=== PATIENT | female | born 1990 | race Caucasian/White ===

== ENCOUNTER → 2016-11-15 | Outpatient (CLI) | payer BC ==
[2016-11-15 17:03] LABS: URINE APPEARANCE CLEAR (CLEAR); URINE BILIRUBIN NEG (NEG); URINE COLOR YELLOW; URINE NITRITE NEG (NEG); URINE SPECIFIC GRAVITY 1.005 (1.000-1.030); UROBILINOGEN NEG (NEG)
[2016-11-15 17:15] LABS: MANUAL MICROSCOPIC REQUIRED? NO; REVIEW REQ? NO
== END | disposition home or self-care (01) ==
LOC: C.LABSPEC 16:17
PROVIDERS: ATTEND Obstetrics & Gynecology
DX: Z34.00 Encounter for supervision of normal first pregnancy, unspecified trimester (principal)

== ENCOUNTER → 2016-11-22 | Outpatient (CLI) | payer BC ==
[2016-11-25 01:46] LABS: CHLAMYDIA TRACH RNA*** NOT DETECTED (NOT DETECTED); GC (NEIS GONORRHOEAE)RNA** NOT DETECTED (NOT DETECTED)
== END | disposition home or self-care (01) ==
LOC: C.LABSPEC 13:52
PROVIDERS: ATTEND Obstetrics & Gynecology
DX: Z34.00 Encounter for supervision of normal first pregnancy, unspecified trimester (principal)

== ENCOUNTER → 2016-11-22 | Outpatient (CLI) | payer BC ==
[2016-11-22 14:46] LABS: BASO % 0.3 %; BASO ABS # 0.02 K/uL (0-0.2); COMPLETE YES; EOS % 2.4 %; HEMATOCRIT 36.2 % (37-47); IG% 0.1 %; LYMPH % 27.5 %; LYMPH ABS # 1.98 K/uL (1.2-3.4); MEAN CELL VOLUME 85.2 fL (80-100); MEAN CORPUSCULAR HEMOGLOBIN 31.5 pg (25-34); MEAN PLATELET VOLUME 10.8 fL (7.4-10.4); MONO % 10.3 %; NEUT % 59.4 %; PLATELET COUNT 224 K/uL (130-400); RED BLOOD COUNT 4.25 M/uL (4.2-5.4); WHITE BLOOD COUNT 7.19 K/uL (4.8-10.8)
== END | disposition home or self-care (01) ==
LOC: C.LAB1850 12:36
PROVIDERS: ATTEND Obstetrics & Gynecology
DX: Z34.00 Encounter for supervision of normal first pregnancy, unspecified trimester (principal)

== ENCOUNTER → 2017-01-31 | Outpatient (CLI) | payer BC ==
[2017-01-31 13:51] LABS: GTGD 50 Grams
== END | disposition home or self-care (01) ==
LOC: C.LAB1850 11:01
PROVIDERS: ATTEND Obstetrics & Gynecology
DX: Z34.01 Encounter for supervision of normal first pregnancy, first trimester (principal)

== ENCOUNTER → 2017-04-27 | Outpatient (CLI) | payer BC ==
[2017-04-27 10:14] LABS: HEMATOCRIT 35.2 % (37-47)
[2017-04-27 10:43] LABS: GTGD 50 Grams
[2017-04-27 12:08] LABS: URINE APPEARANCE TURBID (CLEAR); URINE BILIRUBIN NEG (NEG); URINE COLOR YELLOW; URINE EPITHELIAL CELL AUTO >30 /lpf (0-5); URINE NITRITE NEG (NEG); URINE PH 7.5 (4.5-7.5); URINE SPECIFIC GRAVITY 1.017 (1.000-1.030); UROBILINOGEN NEG (NEG)
[2017-04-27 12:14] LABS: MANUAL MICROSCOPIC REQUIRED? NO; REVIEW REQ? NO
== END | disposition home or self-care (01) ==
LOC: C.LAB1850 09:06
PROVIDERS: ATTEND Obstetrics & Gynecology
DX: Z34.02 Encounter for supervision of normal first pregnancy, second trimester (principal)

== ENCOUNTER → 2017-06-22 | Outpatient (CLI) | payer BC | END | disposition home or self-care (01) | LOC: C.LABSPEC 17:25 | PROVIDERS: ATTEND Obstetrics & Gynecology | DX: Z34.03 Encounter for supervision of normal first pregnancy, third trimester (principal) ==

== ENCOUNTER 2017-07-06 17:01 | Inpatient (IN) | payer BC ==
[~2017-07-06] VITALS: Ht 162.6 cm; Wt 70.8 kg
[2017-07-06 17:46] LABS: HEMATOCRIT 36.3 % (37-47); MEAN CORPUSCULAR HEMOGLOBIN 30.1 pg (25-34); MEAN CORPUSCULAR HGB CONC 35.8 g/dl (32-36); PLATELET COUNT 278 K/uL (130-400); RED BLOOD COUNT 4.32 M/uL (4.2-5.4); WHITE BLOOD COUNT 17.78 K/uL (4.8-10.8)
[2017-07-06 19:38] VITALS: Ht 162.6 cm; Wt 70.8 kg
[2017-07-07] MEDS ORDERED: BUPIVACAINE 0.25% 30 ML VIAL ONE (01:52)
[2017-07-07] MEDS ORDERED: EpHEDrine SULFATE INJ 50 MG/ML AMP ONE (01:52)
[2017-07-07] MEDS ORDERED: FENTANYL CITRATE INJ 50 MCG/1 ML 2 ML VIAL ONE (01:53)
[2017-07-07] MEDS ORDERED: FENTANYL 2MCG/ML ROPIV 1.25MG/ML 100ML BAG EPI ONE (01:53)
[2017-07-07] MEDS ORDERED: LACTATED RINGER'S 1000ML 1,000 ML IV SCH (01:54)
[2017-07-07] MEDS ORDERED: LACTATED RINGER'S 1000ML 1,000 ML IV PRN (01:54)
[2017-07-07] MEDS ORDERED: LACTATED RINGER'S 1000ML 500 ML IV PRN ×2 (03:11→05:18)
[2017-07-07] MEDS ORDERED: NALOXONE HCL INJ 1 MG in SODIUM CHLORIDE 0.9% 1000ML 1,000 ML IV PRN (03:11)
[2017-07-07] MEDS ORDERED: NALBUPHINE HCL INJ 10 MG/ML AMP IV PRN (03:15)
[2017-07-07] MEDS ORDERED: DiphenhydrAMINE HCL 50 MG/ML VIAL IV PRN (03:15)
[2017-07-07] MEDS ORDERED: FENTANYL 2MCG/ML ROPIV 1.25MG/ML 100ML BAG EPI PRN (03:15)
[2017-07-07] MEDS ORDERED: NALOXONE HCL INJ 0.4 MG/1 ML VIAL/CARP IV PRN (03:15)
[2017-07-07] MEDS ORDERED: EpHEDrine SULFATE INJ 50 MG/ML AMP IV PRN (03:15)
[2017-07-07] MEDS ORDERED: ONDANSETRON INJ 2 MG/ML 2 ML VIAL IV PRN (03:15)
[2017-07-07] MEDS ORDERED: OXYTOCIN 30 UNITS/500ML NSS IV PRN ×2 (05:30→11:15)
[2017-07-07] MEDS ORDERED: OXYCODONE/ACETAMINOPHEN 5-325 TAB PO PRN (11:15)
[2017-07-07] MEDS ORDERED: BENZOCAINE 20% AER SPR 82.5 GM CAN EXT PRN (11:15)
[2017-07-07] MEDS ORDERED: DIPHTHERIA/TETANUS/PERTUSSIS 0.5 ML SYR/VIAL IM. ONE (11:15)
[2017-07-07] MEDS ORDERED: SUPERCREAM 0.870 % 15GM JAR EXT PRN (11:15)
[2017-07-07] MEDS ORDERED: LANOLIN OINT EXT PRN ×2 (11:15)
[2017-07-07] MEDS ORDERED: HYDROCORTISONE ACETATE 25 MG SUPP PR PRN (11:15)
[2017-07-07] MEDS ORDERED: ACETAMINOPHEN 325 MG TAB PO PRN (11:15)
--- NOTE | 2017-07-07 11:19 | Medical Student: [facility] ---
Medical Student Delivery Note Pt is a 27 year old Female at 39 weeks and 0 days with an DAVID of 2016 who presented for spontaneous rupture of membranes on 07/05/2017 at 2200. She had not had strong contractions since then and received Pitocin for augmentation of labor. She also received an epidural for pain control. Once she was fully dilated, effaced, and baby progressed to +2 station, she began to push. At 10:47AM a viable male infant with LEIGH presentation was born. Baby was suctioned in the mouth and the nares and then the shoulders and rest of the body was delivered without difficulty. The baby was then placed on the mother's abdomen for drying and skin to skin. After pulsations in the cord decreased, the cord was doubly clamped and cut by the father of the baby. Cord blood was obtained. Mother experienced a second degree perineal tear that was repaired with 3.0 chromic sutures. A three cord intact placenta was then delivered with uterine massage and gentle downward traction. After placental delivery, hemostasis was achieved with uterine massage and some Pitocin. EBL was 300 cc. Sponge and needle count were correct. Mother and baby are resting and recovering well.
--- NOTE | 2017-07-07 11:41 | DELIVERY SUMMARY ---
DATE OF OPERATION: 07/07/2017 PREOPERATIVE DIAGNOSES: 1. Intrauterine at 39 weeks. 2. Prolonged rupture of membranes POSTOPERATIVE DIAGNOSES: Same. PROCEDURES: 1. Epidural anesthesia. 3. Pitocin augmentation. 4. Normal spontaneous vaginal delivery. 5. Second-degree perineal laceration with repair. SURGEON: Geena Escobar MD COOK HELPER PASTRY: Donovan Arizmendi MS3 ANESTHESIA: Epidural. ESTIMATED BLOOD LOSS: 300 mL DESCRIPTION OF PROCEDURE: The patient presented to labor and delivery in early active labor after having rom at 22:00 on 07/05. She progressed very slowly. She then subsequently underwent an epidural anesthesia and then Pitocin augmentation. She progressed to complete-complete and +2 station, pushed to deliver a viable male in LEIGH presentation. There was no nuchal cord. The nose and mouth were bulb suctioned and the rest of the infant was then delivered without difficulty. The was placed on the maternal abdomen for drying and attention where the cord was clamped and cut. Cord blood in segment were obtained. Placenta was delivered spontaneously intact with a 3-vessel cord. Cervix, sulci and rectum were examined and found to be intact. A second-degree perineal laceration was repaired with 3-0 Vicryl in a normal standard fashion. Hemostasis was obtained with dilute Pitocin and fundal massage. Estimated blood loss 300 mL. Apgars 9 and 9. Weight pending. Mother and baby doing well at the end of the delivery. I attest to the content of the Intraoperative Record and any orders documented therein. Any exceptions are noted below. MTDD
--- NOTE | 2017-07-07 13:12 | Anesthesia Procedure Note ---
Anesthesia Epidural Removal Nt Date & Time Jul 07, 2017 at 13:12 Notes Mental Status: alert / awake / arousable, participated in evaluation Nausea / Vomiting: adequately controlled Pain: adequately controlled Airway Patency, RR, SpO2: stable & adequate BP & HR: stable & adequate Hydration State: stable & adequate Neuraxial Anesthesia: was administered, sensory block is resolving Anesthetic Complications: no major complications apparent, pt satisfied with anesthetic care Epidural: removed without complications, with tip intact
[2017-07-07 14:10] VITALS: BP 121/80; PULSE 101; TEMP 37
[2017-07-07] MEDS: IBUPROFEN 600 MG TAB PO PRN ×3 (14:22→23:24)
[2017-07-07 15:30] VITALS: BP 107/69; PULSE 78; TEMP 36.8
[2017-07-07 19:30] VITALS: BP 105/69; PULSE 83; TEMP 36.4
[2017-07-07] MEDS: DOCUSATE SODIUM 100 MG CAP PO SCH (19:49)
[2017-07-07 23:15] VITALS: BP 102/68; PULSE 88; TEMP 36.7
[2017-07-08 03:20] VITALS: BP 106/71; PULSE 86; TEMP 36.5
[2017-07-08] MEDS: IBUPROFEN 600 MG TAB PO PRN ×4 (03:26→20:08)
[2017-07-08 06:50] VITALS: BP 102/70; PULSE 78; TEMP 36.3
[2017-07-08] MEDS: PRENATAL VITAMIN TAB PO SCH (07:34)
[2017-07-08] MEDS: DOCUSATE SODIUM 100 MG CAP PO SCH ×2 (07:34→20:08)
[2017-07-08 07:47] LABS: HEMATOCRIT 27.7 % (37-47)
--- NOTE | 2017-07-08 09:27 | Progress Note ---
Subjective Jul 08, 2017. Subjective conversation w/ patient, physical exam, lab review Ambulation: ambulating normally Voiding: no voiding problems Passing Gas: Yes Diet Tolerance: Regular Diet Lochia: Small Feeding Type: Breast Feeding Comment: Pain controlled. Objective Vital Signs Date Time Temp Pulse Resp B/P (MAP) Pulse Ox O2 Delivery O2 Flow Rate FiO2 07/08/17 07:40 Room Air 07/08/17 06:50 36.3 78 20 102/70 (81) Room Air 07/08/17 03:20 36.5 86 18 106/71 (83) Room Air 07/07/17 23:15 36.7 88 20 102/68 (79) Room Air 07/07/17 23:15 Room Air 07/07/17 19:30 36.4 83 20 105/69 (81) Room Air 07/07/17 15:30 Room Air 07/07/17 15:30 36.8 78 20 107/69 (82) Room Air 07/07/17 14:10 Room Air 07/07/17 14:10 37.0 101 18 121/80 (94) Room Air Physical Exam General Appearance: WELL-APPEARING, WD/WN, NO APPARENT DISTRESS Abdomen: non tender, soft Fundus: Firm, Non-Tender, Relation to Umbilicus (at u) Extremities: non-tender, normal inspection, no pedal edema Laboratory Results Last 24 Hours Test 07/08/17 07:29 Hemoglobin 9.4 g/dL Hematocrit 27.7 % Assessment and Plan Post- Day#: 1 Continue Routine Care: Doing well. Routine care.
[2017-07-08 15:30] VITALS: BP 118/76; PULSE 91; TEMP 36.6
[2017-07-08 23:35] VITALS: BP 110/72; PULSE 85; TEMP 36.7
[2017-07-09] MEDS: IBUPROFEN 600 MG TAB PO PRN (06:07)
--- NOTE | 2017-07-09 06:37 | OB/GYN Progress Note ---
SI[employer] PROJECT MANAGER Progress Note Date of Service Jul 09, 2017. Subjective conversation w/ patient, physical exam, chart review, lab review Ambulation: ambulating normally Voiding: no voiding problems Passing Gas: Yes Diet Tolerance: Regular Diet Lochia: Small Feeding Type: Breast Feeding Pain: 2/10 pain this AM Review of Systems Constitutional: No fever, No chills Respiratory: No shortness of breath Cardiac: + problem reported (reports R sided chest/flank pain) Abdomen: No nausea, No vomiting Female : No dysuria Objective Vital Signs Date Time Temp Pulse Resp B/P (MAP) Pulse Ox O2 Delivery O2 Flow Rate FiO2 07/08/17 23:35 Room Air 07/08/17 23:35 36.7 85 18 110/72 (85) Room Air 07/08/17 15:30 Room Air 07/08/17 15:30 36.6 91 18 118/76 (90) Room Air 07/08/17 07:40 Room Air 07/08/17 06:50 36.3 78 20 102/70 (81) Room Air Physical Exam General Appearance: WELL-APPEARING Respiratory/Chest: lungs clear, normal breath sounds, no respiratory distress, + pertinent finding (R sided costochondral tenderness to palpation) Cardiovascular: regular rate, rhythm Abdomen: normal bowel sounds, non tender, soft Fundus: Firm, Relation to Umbilicus (2 FB below) Extremities: non-tender, + pedal edema (trace) Laboratory Results Last 24 Hours Test 07/08/17 07:29 Hemoglobin 9.4 g/dL Hematocrit 27.7 % Assessment and Plan Post- Day Number: 2 Continue Routine Care: A/P: This is a 27 y/o female, , s/p [normal vaginal delivery] day 2. She is ambulating and clinically stable to discharge. She reports R sided chest/flank pain this AM consistent with costochondritis given tenderness to palpation, lack of chest pain with deep breathing and normal exam findings. No concerns for PE at this time. - Vital signs are reviewed and WNL (Tmax 36.7 ) - Last Hgb 9.4 - Blood type A+, GBS neg, Rubella Immune - No signs of depression. - Routine care - Discussed resting, feeding, pain control, mastitis, control, follow up in 6 weeks and reasons to call sooner, if necessary. - Continue with pain medication as needed, and continue vitamins. - Encourage breast feeding and educate about breast feeding - Patient understands and keen for home. - Plan to discharge home Resident Physician Supervision Note: I interviewed and examined the patient. Discussed with Dr. Drake and agree with findings and plan as documented in the note. Any exceptions or clarifications are listed here: Patient notes what she calls rib/cartilage pain in the right, breathing easily, notes some slight discomfort with deep breath and movement. Pain reproducible with palpation of the area. vitals stable. Suspect costochondritis/irritation. Has no s/s of PE. Reviewed with the patient. She wishes to go home. instructions given. Documented By: Geena Escobar Resident Involvement: Resident Care Provided Care Provided: OB Delivery
--- NOTE | 2017-07-09 06:38 | Discharge Instructions ---
Discharge Instructions Date of Service Jul 09, 2017. Admission Reason for Admission: Check Labor Discharge Discharge Diagnosis / Problem: after vaginal delivery Discharge Goals Goal(s): Routine recovery after delivery Medications Continue Dispensed Medications: supercream, dermaplast, tucks, lansinoh Activity Recommendations Activity Limitations: per Instructions/Follow-up section . Instructions / Follow-Up Instructions / Follow-Up ACTIVITY RECOMMENDATIONS: * Gradual return to full activity over the next 2-3 weeks. * No lifting - nothing heavier than baby over the next 2-3 weeks. * Do not engage in vigorous exercise, sexual activity or sports until cleared by your physician. * Do not drive or operate any motorized equipment until cleared by your physician. * You may shower/bathe daily. MEDICATIONS: For discomfort or pain, you may use Acetaminophen (Tylenol), Ibuprofen (Advil), or Naproxen (Aleve) following the package directions. For constipation you may use Colace following the package directions. BREAST CARE: If you are not breast feeding: * Wear a supportive bra 24 hours a day for one to two weeks. * Avoid stimulating your breasts and nipples as much as possible during the first few weeks after delivery. * When taking a shower, have the warm water hit your back, not breasts. * When your breasts feel full, apply ice packs. Usually three to four times a day helps ease the discomfort. * Take a mild pain medication (Tylenol / Motrin) when you are uncomfortable. If breast feeding: * Use breast milk to lubricate nipples. Lansinoh cream may be used for sore nipples. You do not need to remove cream prior to breast feeding. If using a different brand of cream, check the label for directions regarding removal of cream prior to nursing. * Wear a supportive bra. * If having problems with breasts or breast feeding, call a marketing sales consultant or your health care provider. EPISIOTOMY CARE: After delivery, if you have an episiotomy (stitches), the following steps will ease discomfort and aid healing. * For the first 24 hours after delivery, place ice packs next to your episiotomy to help reduce swelling. * After the first 24 hour-period, sitz baths, either portable or in the tub, are suggested. A shower with a shower arm sprayed over the episiotomy may be comforting. * Jessie care should be done after each voiding and bowel movement. Squirt warm water from a plastic bottle over the perineum (region of the body between the anus and urinary opening) and pat dry. * Use Dermoplast to ease discomfort. Shake container. [place] directly over the episiotomy. Place a Tucks on a clean sanitary pad next to your episiotomy. SPECIAL CARE INSTRUCTIONS: When you are discharged from the hospital, it is important for you to follow the instructions listed below: * During the first week at home, you should be able to care for yourself and your baby. In addition, the usual light household activities are encouraged. * Limit your activities to the way you feel. Do not try to clean the house or move furniture. Be sensible. * If you actively engage in sports and have done so up until the time of your delivery, you may resume these activities as soon as you feel able. This may take up to one month or even longer. Use good judgment. * Continue to take your vitamins for at least six weeks after the of your baby. * Your diet need not be limited unless you were on a special diet before your delivery. Breast-feeding mothers need around 2500 calories per day and at least 64-80 ounces of fluid per day (8 to 10 glasses). * You should eat foods from the four major food groups. Crash diets or fad diets are to be avoided. Eating lean meats, fresh fruits and vegetables, low-fat dairy products, high fiber foods and a regular exercise program, will help you get back to your pre- weight without putting your health at risk. * Constipation is sometimes a problem after delivery. Take a mild laxative as needed. If breast feeding, Milk of Magnesia is acceptable to use. You may use a suppository or Fleets enema if no episiotomy. * A daily shower or tub bath is suggested. Be sure to thoroughly and gently dry the perineum. * A bloody vaginal discharge will usually continue until around four weeks post . A small amount of bleeding may continue for as long as six weeks. Vaginal discharge changes from the bright red bleeding after delivery to pink then brownish and finally yellowish-pink before becoming white and disappearing. * Bleeding may increase with activity. Your first period may come in 4-8 weeks. If you are breast feeding, your period may be delayed even longer. * [place] (sex) can begin whenever both you and your partner feel comfortable and do not have any form of genital infection. It is recommended that you wait at least six weeks for internal and external healing to occur. If you have questions, please talk to your health care practitioner. A condom should be used to prevent infection and . * Foreplay, gentle intercourse and lubrication is very important the first several times to prevent pain. A water-based lubricant such as K-Y jelly or Astroglide may be used. * If you have RH negative blood and your baby is RH positive, you will receive RHOGAM by injection prior to discharge. The nurse will give you a card to keep with you that has the date and place that you received RHOGAM after delivery. * During your care, you had a Rubella screen done to check for the presence of rubella antibodies in your blood. If your test was negative, you will receive a Rubella vaccine prior to discharge. This vaccine may cause a fever, soreness at the injection site and flu-like symptoms. If these symptoms persist, notify your health care practitioner. is not advised for one month after a Rubella vaccine. * Verbalizes understanding of car seat law as reviewed with patient nursing. * Car Seat hand-out given and reviewed with patient by nursing. * Shaken baby information reviewed with patient by nursing. Call you doctor if: * Heavy bleeding (saturating several pads an hour) or passing clots the size of your fist. * A fever >101 degrees F (38.3 degrees C) on two occasions four hours apart and /or chills. * Unusual pain in the pelvic or vaginal areas. * "Baby Blues" lasting longer than two weeks. If you have any questions or concerns, call your health care practitioner at . FOLLOW UP VISIT: * Please call the office at to schedule a 6 week examination. It is important you keep this appointment. It is important for you to make arrangements for either yearly or twice yearly check-ups thereafter. Current Hospital Diet Patient's current hospital diet: Regular OB Diet Discharge Diet Recommended Diet: Regular Diet Pending Studies Studies pending at discharge: no Medical Emergencies . Who to Call and When: Medical Emergencies: If at any time you feel your situation is an emergency, please call 911 immediately. . Non-Emergent Contact Non-Emergency issues call your: Business Insurance Agent Call Non-Emergent contact if: you have a fever, temperature is above 101, your pain is not controlled . . "Provider Documentation" section prepared by Sharlene Drake. . VTE Core Measure Inpt VTE Proph given/why not?: SCD's
[2017-07-09 07:53] VITALS: BP 112/76; PULSE 71; TEMP 36.6
[2017-07-09] MEDS: DOCUSATE SODIUM 100 MG CAP PO SCH (09:00)
[2017-07-09] MEDS: PRENATAL VITAMIN TAB PO SCH (09:00)
[2017-07-09 11:49] VITALS: BP_DIAS 76; PULSE 71; TEMP 36.6
== END 2017-07-09 11:55 | disposition home or self-care (01) | DRG 775 ==
LOC: C.OPB 17:01 → C.LD 17:02 → C.OPB 07-07 11:00 → C.LD 07-07 11:00 → C.OBG 07-07 14:40
PROVIDERS: ADMIT Obstetrics & Gynecology; ATTEND Obstetrics & Gynecology
PROC: 10E0XZZ Delivery of Products of Conception, External Approach (ICD-10-PCS; principal; 2017-07-07)
PROC: 0KQM0ZZ Repair Perineum Muscle, Open Approach (ICD-10-PCS; principal; 2017-07-07)
DX: O70.1 Second degree perineal laceration during delivery (principal); O42.12 Full-term premature rupture of membranes, onset of labor more than 24 hours following rupture; O99.89 Other specified diseases and conditions complicating pregnancy, childbirth and the puerperium; Z3A.39 39 weeks gestation of pregnancy; Z37.0 Single live birth; M94.0 Chondrocostal junction syndrome [Tietze]

== ENCOUNTER → 2017-08-28 | Outpatient (CLI) | payer OTHER | END | disposition home or self-care (01) | LOC: C.PAPS 08:01 | PROVIDERS: ATTEND Obstetrics & Gynecology | DX: Z12.4 Encounter for screening for malignant neoplasm of cervix (principal) ==

== ENCOUNTER → 2017-11-26 | Outpatient (CLI) | payer OTHER ==
--- NOTE | 2017-11-26 16:10 | DIAGNOSTIC IMAGING REPORT ---
SOFT TISS HEAD/NECK-THYROID CLINICAL HISTORY: 27 years-old Female presenting with CERVICALGIA, NON TOXIC GOITER. TECHNIQUE: Real-time grayscale and color Doppler ultrasound imaging of the thyroid and base of the neck was performed. COMPARISON: None. FINDINGS: Right lobe: Normal echogenicity and echotexture. The right lobe of the thyroid measures 5.5 x 1.9 x 1.3 cm. No parenchymal hyperemia. Nodules enumerated below: 1. Well-defined wider than tall hypoechoic nodule in the interpolar region measuring 1.2 x 0.9 x 0.9 cm. (Intermediate suspicion) 2. Numerous additional hypoechoic diminutive nodules. Left lobe: Normal echogenicity and echotexture. The left lobe of the thyroid measures 5.6 x 1.7 x 2.0 cm. No parenchymal hyperemia. Nodules enumerated below: 1. Spongiform nodule at the lower pole measuring 2.3 x 1.9 x 1.9 cm. (Very low suspicion) Isthmus: The isthmus measures 5 mm in thickness. No parenchymal hyperemia. No nodules. IMPRESSION: Intermediate suspicion pattern nodule in the right thyroid lobe measuring 1.2 cm. Fine-needle aspiration biopsy recommended by [place] [employer] criteria based on size and appearance if biopsy has not previously been performed. Electronically signed by: Mark Brooks M.D. 11/26/2017 4:08 PM Dictated Date/Time: 11/26/2017 4:06 PM
== END | disposition home or self-care (01) ==
LOC: C.ULTRBC 15:04
PROVIDERS: ATTEND Nurse Practitioner
DX: M54.2 Cervicalgia (principal); E04.9 Nontoxic goiter, unspecified

== ENCOUNTER 2020-07-23 03:03 | Inpatient (IN) ==
[2020-07-23] MEDS ORDERED: OXYTOCIN 30 UNITS/500 ML BAG IV PRN ×2 (03:47→03:51)
[2020-07-23] MEDS ORDERED: LACTATED RINGER'S 1,000 ML IV PRN (03:47)
[2020-07-23] MEDS ORDERED: ACETAMINOPHEN 325 MG TAB PO PRN (03:51)
[2020-07-23] MEDS ORDERED: oxyCODONE/ACETAMINOPHEN 5mg/325mg TAB PO PRN (03:51)
--- NOTE | 2020-07-23 03:56 | Delivery Summary ---
Vaginal Delivery Summary Date of Service July 23, 2020 30yo at 38+wks bruna presented to L&D in active labor at 9cm. Upon my arr ival, pt complete and pushing. Patient pushed to deliver viable male apgars 8,9 via over 2nd degree perineal laceration. Mouth and nose bulb suctioned at perineum. Shoulders and body delivered with ease. Infant was vigorous and crying at . Cord clamped at 60 seconds of life and to maternal abdomen where the cord was then doubly clamped and cut. Placenta delivered spontaneously and intact, three-vessel cord. Hemostasis achieved with dilute pitocin and uterine massage. Laceration repaired with 3-0 vicryl in usual fashion after 1% local lidocaine injection. Cervix and sulci intact. EBL 300 cc. Mother and baby stable recovery. Patient's course reviewed. Had marginal previa, that resolved at 32wk u/s, mmr needed , hypothyroidism on meds and managed by endocrine. GBS negative. Covid pending. Will obtain rapid covid test now. [facility] Vaginal Delivery Charge Vaginal Delivery Codes: 28753 global code for the antepartum, delivery, and post-
[2020-07-23] MEDS ORDERED: MEASLES, MUMPS & RUBELLA VIRUS VIAL SQ ONE (04:00)
[2020-07-23] MEDS ORDERED: OXYTOCIN 20 UNITS in LACTATED RINGER'S 1,000 ML IV SCH (04:00)
[2020-07-23] MEDS: IBUPROFEN 600 MG TAB PO PRN ×4 (04:14→20:23)
[2020-07-23] MEDS ORDERED: BENZOCAINE 20% AER SPR 82.5 GM CAN EXT PRN (04:45)
[2020-07-23] MEDS ORDERED: SUPERCREAM 0.870% 15 GM JAR EXT PRN (04:45)
[2020-07-23] MEDS ORDERED: DIPHTHERIA/TETANUS/PERTUSSIS 0.5 ML SYR/VIAL IM ONE (04:45)
[2020-07-23] MEDS ORDERED: HYDROCORTISONE ACETATE 25 MG SUPP PR PRN (04:45)
[2020-07-23] MEDS ORDERED: LIDOCAINE HCL 1% 20 ML VIAL ONE (04:54)
[2020-07-23] MEDS ORDERED: LIDOCAINE HCL 1% MPF 5 ML VIAL ONE (04:54)
[2020-07-23] MEDS ORDERED: OXYTOCIN 30 UNITS/500ML NSS ONE (05:00)
[2020-07-23] MEDS: LEVOTHYROXINE SODIUM 50 MCG TABLET PO SCH (06:13)
[2020-07-23 06:45] LABS: Hematocrit (blood only) 34.1 % (37-47); Mean Corpuscular Hemoglobin 30.5 pg (25-34); Mean Corpuscular Hgb Conc 35.2 g/dL (32-36); Mean Corpuscular Volume 86.5 fL (80-100); Mean Platelet Volume 10.9 fL (7.4-10.4); Platelet Count 257 K/uL (130-400); RDW Standard Deviation 41.4 fL (36.4-46.3); Red Blood Count 3.94 M/uL (4.2-5.4); White Blood Count 21.01 K/uL (4.8-10.8)
[2020-07-23] MEDS: DOCUSATE SODIUM 100 MG CAP PO SCH ×2 (08:39→20:23)
[2020-07-24] MEDS: IBUPROFEN 600 MG TAB PO PRN ×3 (00:27→08:42)
[2020-07-24] MEDS: LEVOTHYROXINE SODIUM 50 MCG TABLET PO SCH (06:19)
--- NOTE | 2020-07-24 07:14 | Obstetrical Progress Note ---
Date of Service July 24, 2020 Assessment & Plan (1) state: Recovered well PPD#1 and desires D/C. Instructions reviewed, OK for home. Subjective Ambulation: ambulating normally Voiding: no voiding problems Passing Gas:: Yes Diet Tolerance:: regular diet Lochia:: Small Feeding Type:: breast feeding Physical Exam Constitutional WD/WN, vitals as above Eyes PERRL, conjunctivae normal, anicteric sclerae Neck normal visual inspection Respiratory normal respiratory effort and able to speak in complete sentences; no respiratory distress and no labored breathing Cardiovascular Rate/Rhythm: regular rate and regular rhythm Extremities: no edema Chest (Breasts) Chest: normal inspection of chest Gastrointestinal (Abdomen) Inspection/Auscultation: abdomen normal to inspection Soft, postgravid Psychiatric A+Ox3, euthymic affect Genitourinary OB Exam Abdomen: + fundal height Fundus: + firm and + relation to umbilicus (fundus just below umbilicus); not tender Results & Data ([facility]) Vital Signs (Past 12 Hours) Vital Signs Temp Pulse Resp BP Pulse Ox 07/24/20 03:45 98.1 F 73 18 109/70 98 07/24/20 00:00 98.2 F 88 20 127/86 99 07/23/20 20:30 97.9 F 89 18 114/73
[2020-07-24] MEDS: DOCUSATE SODIUM 100 MG CAP PO SCH (08:42)
== END 2020-07-24 11:00 | disposition home or self-care (01) | DRG 807 ==
LOC: OPB 03:03 → 4S1 03:08 → 4S2 06:17